=== PATIENT | female | born 1980 | race Caucasian/White ===

== ENCOUNTER 2025-04-10 18:27 | Emergency (ER) | payer OTHER, SELFPAY ==
[2025-04-10 18:35] VITALS: BP 105/78; PULSE 90; RESP 16; TEMP 36.4; O2SAT 98; BMI 25.7
--- NOTE | 2025-04-10 18:42 | ED_ITS ---
HPI - General Adult General Chief complaint: Ear/Nose/Throat Problem Stated complaint: ear pain/plugged ears Time Seen by Provider: 04/10/25 18:28 Source: patient Mode of arrival: ambulatory Limitations: no limitations History of Present Illness HPI narrative: 44-year-old female coming in today complaining of clogged ears bilaterally for approximately 1 week. Hearing is muffled. Denies other complaints. Related Data Home Medications ?Medication ?Instructions ?Recorded ?Confirmed albuterol sulfate 90 mcg/actuation 1 - 2 puff inhalati on Q4-6H PRN 08/17/24 08/17/24 aerosol inhaler (Ventolin HFA) fluticasone propionate 115 1 puff inhalation BID 08/1708/17/24 mcg-salmeterol 21 mcg/actuation HFA inhaler (Advair HFA) venlafaxine 37.5 mg 37.5 mg PO DAILY 08/17/24 tablet,extended release 24 hr Allergies Allergy/AdvReac Type Severity Reaction Status Date / Time Penicillins Allergy Severe Anaphylaxis Verified 08/17/24 13:17 Review of Systems Status of ROS: Reports: 6 or more systems reviewed and unremarkable except as noted in History and below [facility] Medical History History of abnormal cervical Pap smear ?Z87.42 - Personal history of other diseases of the female genital tract (ICD-10) History of pneumonia ?Z87.01 - Personal history of pneumonia (recurrent) (ICD-10) Surgical History History of loop electrical excision procedure (LEEP) ?Z98.890 - Other specified postprocedural states (ICD-10) History of vein stripping ?Z98.890 - Other specified postprocedural states (ICD-10) History of cyst of breast ?Z87.2 - Personal history of diseases of the skin and subcutaneous tissue (ICD-10) History of surgical removal of ganglion cyst ?Z98.890 - Other specified postprocedural states (ICD-10) Exam Narrative: Exam Narrative: Well-nourished well-developed patient in no acute distress. Alert and oriented. Answers questions appropriately. Mood and affect are appropriate. Thoughts are goal oriented and rational. No tangential or magical thinking noted. Patient speaks in full sentences without needing to catch her breath. Voice sounds normal. HEENT: Normocephalic atraumatic. Pupils are equally round reactive to light. Extraocular muscles are intact. Conjunctivae are moist without any icterus noted. Moist mucous membranes. TMs obscured bilaterally by cerumen. Question cotton or another white substance on the left. Skin: Well perfused without any obvious rashes. Const: Vital Signs, click to edit/add: Vital Signs - 24 hr 04/10/25 18:35 Temperature 97.5 F L Pulse Rate [Pulse Oximeter] 90 Respiratory Rate 16 Blood Pressure [Ri t Upper Arm] 105/78 Pulse Oximetry 98 Oxygen Delivery Me thod Room Air Course Course ED Course: Ears irrigated by nursing. Indeed a piece of cotton irrigated from the left side. Repeat examination reveals clear ear canals with healthy appearing TMs bilaterally. Patient feels significantly better. Vital Signs Vital signs: Initial Vital Signs Temperature 97.5 F L 04/10/25 18:35 Temperature Source Temporal Artery Scan 04/10/25 18:35 Pulse Rate 90 04/10/25 18:35 Respiratory Rate 16 04/10/25 18:35 Blood Pressure 105/78 04/10/25 18:35 Blood Pressure Mean 87 04/10/25 18:35 Blood Pressure Position Sitting 04/10/25 18:35 Pulse Oximetry 98 04/10/25 18:35 Oxygen Delivery Method Room Air 04/10/25 18:35 Vital Signs Temperature 97.5 F L 04/10/25 18:35 Pulse Rate 90 04/10/25 18:35 Respiratory Rate 16 04/10/25 18:35 Blood Pressure 105/78 04/10/25 18:35 Pulse Oximetry 98 04/10/25 18:35 Oxygen Delivery Method Room Air 04/10/25 18:35 Temperature 97.5 F L 04/10/25 18:35 Pulse Rate 90 04/10/25 18:35 Respiratory Rate 16 04/10/25 18:35 Blood Pressure 105/78 04/10/25 18:35 Pulse Oximetry 98 04/10/25 18:35 Oxygen Delivery Method Room Air 04/10/25 18:35 Medical Decision Making MDM Narrative Medical decision making narrative: Cerumen impaction bilaterally. Irrigated in the ED. Discharge Plan Discharge Clinical Impression: Bilateral impacted cerumen Patient Disposition: Home, Self-Care Condition: Improved Prescriptions: No Action venlafaxine 37.5 mg tablet extended release 24hr 37.5 mg PO DAILY albuterol sulfate [Ventolin HFA] 90 mcg/actuation HFA aerosol inhaler 1 - 2 puff inhalation Q4-6H PRN fluticasone propion-salmeterol [Advair HFA] 115-21 mcg/actuation HFA aerosol inhaler 1 puff inhalation BID Follow Up/Referrals: Provider,Not a Local [Primary Care Provider, Family Practice] Stand Alone Forms: GOOD Info Instructions
== END 2025-04-10 19:11 | disposition home or self-care (01) ==
LOC: ED 18:52
PROVIDERS: Emergency Provider Family Medicine
DX: H61.23 Impacted cerumen, bilateral (principal)
CPT/HCPCS: 69209; 99282; 99283